=== PATIENT | female | born 1960 | race African-American/Black ===

== ENCOUNTER 2018-02-21 06:12 | Inpatient (IN) ==
[2018-02-21] MEDS ORDERED: Metoprolol Tartrate 25 MG Tablet PO ONE (06:38)
[2018-02-21] MEDS ORDERED: Chlorhexidine Gluconate 2% 1 Pack (2 Cloths) TOPICAL ONE (06:38)
[2018-02-21] MEDS ORDERED: ceFAZolin 2 GM Premix Inj 2 GM/50 ML PIGGYBACK IV.SIG SCH (07:00)
[2018-02-21] MEDS ORDERED: Sodium Chlor 0.9% Inj 500 ML IV.SIG SCH (07:00)
[2018-02-21] MEDS: Dextrose 5%/NaCl 0.9% Inj 1,000 ML IV.CONT SCH ×3 (07:17→21:57)
[2018-02-21] MEDS ORDERED: Lidocaine PF 1% Inj 5 ML Syringe OTHER ONE (08:48)
[2018-02-21] MEDS ORDERED: Normosol-R pH 7.4 Inj 3,000 ML IV.CONT ONE (08:48)
[2018-02-21] MEDS ORDERED: Phenylephrine/NS 1000 MCG/10ML Syringe IV.PUSH ONE (08:48)
--- NOTE | 2018-02-21 09:49 | P.OP ---
- Preoperative Diagnosis (1) Diverticulitis (2) Colovesical fistula - Postoperative Diagnosis (1) Colovesical fistula (2) Diverticulitis Date of procedure: 02/21/18 Procedure: Cystoscopy of bilateral ureteral catheter insertion Anesthesia: MALINI Surgeon: Brett Adhikari DO Operation and Findings: 57-year-old female with history of diverticulitis and colovesical fistula. Patient elected to undergo repair by Dr. Velazquez. Request were made for bilateral ureteral catheter insertion. Patient was brought to the operating room placed in the dorsolithotomy position. She was prepped and draped in usual sterile fashion, received preprocedure antibiotics, and received general endotracheal tube anesthesia. 2 Korean cystoscope was inserted the bladder lundberg cystoscopy was unremarkable. The left ureteral orifice was identified a 5 Korean Jiang catheter was inserted into the left ureteral orifice. This was repeated on the right side without difficulty. The Jiang was inserted and the catheters were attached to the Jiang. She tolerated the procedure well.
[2018-02-21] MEDS ORDERED: fentaNYL Citrate Inj 100 MCG/2 ML Ampul ONE ×3 (13:48→15:45)
[2018-02-21] MEDS ORDERED: ceFAZolin 2 GM Premix Inj 2 GM/50 ML PIGGYBACK IV.SIG ONE (14:02)
[2018-02-21] MEDS ORDERED: Naloxone Inj 0.4 MG/ML Vial IV.PUSH PRN (14:44)
[2018-02-21] MEDS ORDERED: Dextrose 5%/NaCl 0.9% Inj 1,000 ML IV.CONT SCH (14:45)
[2018-02-21] MEDS ORDERED: Potassium Chlor 20 mEq Premix 20 MEQ/100 ML PIGGYBACK IV.SIG PRN ×2 (14:45→16:00)
[2018-02-21] MEDS ORDERED: Sugammadex Inj 200 MG/2 ML Vial IV.PUSH ONE (14:54)
[2018-02-21] MEDS: Morphine Inj 30 MG/30 ML PCA.VIAL PCA PRN (15:58)
[2018-02-21 16:00] LABS: Baso % (Auto) 0.1 % (0.0-2.0); Eos # (Auto) 0.1 th/mm3 (0.0-0.4); Eos % (Auto) 0.4 % (0.0-4.0); Hematocrit 41.7 % (35.0-46.0); Hemoglobin 13.5 gm/dL (11.6-15.3); Lymph # (Auto) 0.8 th/mm3 (1.0-4.8); Lymph % (Auto) 6.1 % (9.0-44.0); Mean Corpuscular HGB Conc 32.4 % (32.0-36.0); Mean Corpuscular Volume 83.5 fL (80.0-100.0); Mean Platelet Volume 7.7 fL (7.0-11.0); Mono # (Auto) 0.7 th/mm3 (0.0-0.9); Mono % (Auto) 5.2 % (0.0-8.0); Neut # (Auto) 11.5 th/mm3 (1.8-7.7); Neut % (Auto) 88.2 % (16.0-70.0); Platelet Count 277 th/mm3 (150-450); Red Blood Count 4.99 mil/mm3 (4.00-5.30); Red Cell Distribution Width 14.8 % (11.6-17.2)
[2018-02-21] MEDS ORDERED: *morphine SULFATE 4 MG/ML PERIprocedure ONLY ONE (16:00)
[2018-02-21] MEDS: Ketorolac Inj 30 MG/ML (IVP) Vial IV.PUSH SCH ×2 (16:06→21:00)
[2018-02-21] MEDS ORDERED: ceFAZolin 1 GM Premix Inj 1 GM/50 ML IV.SIG SCH (18:00)
[2018-02-21 20:03] LABS: Calcium 7.4 mg/dL (8.5-10.1); Carbon Dioxide 27.6 meq/L (21.0-32.0); Potassium 3.5 meq/L (3.5-5.1)
[2018-02-21 20:28] LABS: Calcium-Albumin Corrected 7.5 mg/dL (8.5-10.1); Total Protein 6.9 g/dL (6.4-8.2)
[2018-02-21] MEDS: ceFAZolin 1 GM Premix Inj 1 GM/50 ML IV.SIG SCH (20:49)
[2018-02-21] MEDS: Famotidine PF Inj 20 MG/2 ML Vial IV.PUSH SCH (20:49)
[2018-02-22] MEDS: ceFAZolin 1 GM Premix Inj 1 GM/50 ML IV.SIG SCH ×2 (03:40→11:33)
[2018-02-22] MEDS: Ketorolac Inj 30 MG/ML (IVP) Vial IV.PUSH SCH ×4 (03:40→22:34)
[2018-02-22] MEDS: Dextrose 5%/NaCl 0.9% Inj 1,000 ML IV.CONT SCH ×2 (03:42→06:18)
[2018-02-22 04:42] LABS: Baso % (Auto) 0.1 % (0.0-2.0); Hematocrit 35.2 % (35.0-46.0); Hemoglobin 11.4 gm/dL (11.6-15.3); Lymph # (Auto) 0.8 th/mm3 (1.0-4.8); Lymph % (Auto) 6.3 % (9.0-44.0); Mean Corpuscular HGB Conc 32.4 % (32.0-36.0); Mean Corpuscular Hemoglobin 26.8 pg (27.0-34.0); Mean Corpuscular Volume 82.7 fL (80.0-100.0); Mean Platelet Volume 7.7 fL (7.0-11.0); Mono # (Auto) 0.9 th/mm3 (0.0-0.9); Mono % (Auto) 7.3 % (0.0-8.0); Neut # (Auto) 10.5 th/mm3 (1.8-7.7); Neut % (Auto) 86.3 % (16.0-70.0); Platelet Count 295 th/mm3 (150-450); Red Blood Count 4.26 mil/mm3 (4.00-5.30); Red Cell Distribution Width 14.1 % (11.6-17.2); White Blood Count 12.1 th/mm3 (4.0-11.0)
[2018-02-22 05:07] LABS: Calcium 7.4 mg/dL (8.5-10.1); Carbon Dioxide 27.4 meq/L (21.0-32.0); Potassium 3.4 meq/L (3.5-5.1)
[2018-02-22 05:23] LABS: Calcium-Albumin Corrected 7.8 mg/dL (8.5-10.1); Total Protein 6.3 g/dL (6.4-8.2)
[2018-02-22] MEDS: Famotidine PF Inj 20 MG/2 ML Vial IV.PUSH SCH ×2 (09:10→20:36)
[2018-02-22] MEDS: Heparin - SQ 10,000 UNITS/ML Vial SQ SCH ×2 (09:10→20:36)
[2018-02-23] MEDS: Ketorolac Inj 30 MG/ML (IVP) Vial IV.PUSH SCH ×5 (04:03→21:29)
[2018-02-23] MEDS: Morphine Inj 30 MG/30 ML PCA.VIAL PCA PRN ×2 (05:27→13:51)
[2018-02-23 08:18] LABS: Baso % (Auto) 0.2 % (0.0-2.0); Eos % (Auto) 0.1 % (0.0-4.0); Hematocrit 30.6 % (35.0-46.0); Hemoglobin 9.9 gm/dL (11.6-15.3); Lymph # (Auto) 0.9 th/mm3 (1.0-4.8); Lymph % (Auto) 9.9 % (9.0-44.0); Mean Corpuscular HGB Conc 32.2 % (32.0-36.0); Mean Corpuscular Hemoglobin 27.1 pg (27.0-34.0); Mean Corpuscular Volume 84.3 fL (80.0-100.0); Mono # (Auto) 0.7 th/mm3 (0.0-0.9); Mono % (Auto) 7.6 % (0.0-8.0); Neut # (Auto) 7.3 th/mm3 (1.8-7.7); Neut % (Auto) 82.2 % (16.0-70.0); Platelet Count 252 th/mm3 (150-450); Red Blood Count 3.63 mil/mm3 (4.00-5.30); Red Cell Distribution Width 14.2 % (11.6-17.2); White Blood Count 8.9 th/mm3 (4.0-11.0)
[2018-02-23 08:35] LABS: Calcium 7.8 mg/dL (8.5-10.1); Carbon Dioxide 27.7 meq/L (21.0-32.0); Potassium 3.8 meq/L (3.5-5.1)
[2018-02-23] MEDS: Heparin - SQ 10,000 UNITS/ML Vial SQ SCH ×2 (08:35→20:06)
[2018-02-23] MEDS: Famotidine PF Inj 20 MG/2 ML Vial IV.PUSH SCH ×2 (08:35→20:06)
[2018-02-23 12:06] LABS: Hematocrit 30.4 % (35.0-46.0); Hemoglobin 9.9 gm/dL (11.6-15.3); Mean Corpuscular HGB Conc 32.7 % (32.0-36.0); Mean Corpuscular Hemoglobin 27.7 pg (27.0-34.0); Mean Corpuscular Volume 84.8 fL (80.0-100.0); Platelet Count 251 th/mm3 (150-450); Red Blood Count 3.59 mil/mm3 (4.00-5.30); Red Cell Distribution Width 14.7 % (11.6-17.2); White Blood Count 10.3 th/mm3 (4.0-11.0)
[2018-02-23 12:17] LABS: Carbon Dioxide 27.1 meq/L (21.0-32.0)
[2018-02-24] MEDS: Ketorolac Inj 30 MG/ML (IVP) Vial IV.PUSH SCH ×4 (03:21→21:08)
[2018-02-24] MEDS: Morphine Inj 30 MG/30 ML PCA.VIAL PCA PRN (06:13)
[2018-02-24] MEDS: Heparin - SQ 10,000 UNITS/ML Vial SQ SCH ×2 (10:00→21:12)
[2018-02-24] MEDS: Famotidine PF Inj 20 MG/2 ML Vial IV.PUSH SCH ×2 (10:00→21:11)
--- NOTE | 2018-02-24 15:29 | P.PNCS ---
Subjective Colorectal Surgery Post Op Day #: 3 Interval history: s/p robotic LAR, resection/reanastomosis transverse colostomy Objective Result Diagrams: 02/23/18 11:38 02/23/18 11:38 Objective Remarks: Abdomen soft, moderate distension, nontender Wounds clean Assessment and Plan - Assessment (1) Diverticulitis Code(s): K57.92 - Diverticulitis of intestine, part unspecified, without perforation or abscess without bleeding Status: Acute (2) Colovesical fistula Code(s): N32.1 - Vesicointestinal fistula Status: Acute - Plan Advance diet Add Reglan Mobilize Stop [employer] Hopefully home tomorrow
[2018-02-24] MEDS ORDERED: Bisacodyl 10 MG Supp RECTAL ONE (15:30)
[2018-02-25] MEDS: Ketorolac Inj 30 MG/ML (IVP) Vial IV.PUSH SCH ×2 (04:56→09:42)
--- NOTE | 2018-02-25 08:33 | P.PNCS ---
Subjective Colorectal Surgery Post Op Day #: 4 Interval history: s/p robotic LAR, resection/reanastomosis transverse colostomy Objective Result Diagrams: 02/23/18 11:38 02/23/18 11:38 Objective Remarks: Abdomen soft, mild distension, mildly tender Wounds clean Assessment and Plan - Assessment (1) Diverticulitis Code(s): K57.92 - Diverticulitis of intestine, part unspecified, without perforation or abscess without bleeding Status: Acute (2) Colovesical fistula Code(s): N32.1 - Vesicointestinal fistula Status: Acute - Plan Doing well Home today
--- NOTE | 2018-02-25 09:25 | MD ---
cc: Elly Velazquez MD DATE OF DISCHARGE: 02/25/2018 ADMISSION DIAGNOSES: Diverticulitis, hypertension. DISCHARGE DIAGNOSES: Diverticulitis, hypertension. PROCEDURES: 1. Cystoscopy with placement of bilateral ureteral catheters. 2. Resection with reanastomosis of transverse colostomy. 3. Extensive lysis of adhesions. 4. Low anterior resection. HOSPITAL COURSE: The patient is a 57-year-old female who underwent a diverting transverse colostomy sometime about 8 months ago, I believe, for a perforated diverticulitis. She was admitted to the hospital on 02/21/2018, after an outpatient bowel prep. She went to the operating room where she underwent the above-named procedures. Postoperatively, she did well with slightly delayed bowel function, but she did begin passing stool on postoperative day #3 and was discharged on postoperative day #3 with instructions to followup with myself in the office. Final pathology is not available at the time of discharge. MD CRYSTAL Goss/nereyda , 08:36 AM , 08:42 AM
[2018-02-25] MEDS: Famotidine PF Inj 20 MG/2 ML Vial IV.PUSH SCH (09:43)
[2018-02-25] MEDS: Heparin - SQ 10,000 UNITS/ML Vial SQ SCH (09:43)
[2018-02-25 09:51] VITALS: BP 147/67; PULSE 94; RESP 16; TEMP 97.8; O2SAT 994
--- NOTE | 2018-02-25 15:00 | MP ---
cc: Elly Velazquez MD DATE OF OPERATION: 02/21/2018 PREOPERATIVE DIAGNOSIS: History of perforated diverticulitis. POSTOPERATIVE DIAGNOSIS: History of perforated diverticulitis. PROCEDURE PERFORMED: 1. Robotic-assisted resection with reanastomosis of transverse colon colostomy. 2. Extensive lysis of adhesions. 3. Low anterior resection. 4. Takedown of splenic flexure. SURGEON: Elly Velazquez MD. SOCK KNITTER: Sudhir. ANESTHESIA: General per ET tube. ESTIMATED BLOOD LOSS: 100 mL. OPERATIVE INDICATIONS: This is a 57-year-old female who approximately 8 months prior to this admission had a ruptured diverticulitis. The surgeon that saw her did a washout with a diverting loop transverse colostomy. She was brought to the operating room, placed in the supine position. After induction of general anesthesia, the patient was placed in Deep stirrups and all bony prominences were carefully padded. The skin of the anterior abdominal wall as well as the perineal area were then prepped and draped in the usual sterile fashion. Dr. Adhikari then came in and performed cystoscopy with placement of bilateral ureteral catheters, please see his operative note for details. Because of her stoma, the assist port was placed first just under the right costal margin. This was a #5 assist port, although we did later change it out to an 8 de Favian port. CO2 insufflation was then undertaken. The patient was noted immediately to have some adhesions to the anterior abdominal wall. These were mostly from the omentum, but some bowel. These were slowly and painstakingly dissected free using electrocautery. Eventually, we had mobility of everything with the exception, of course, of the stoma. The right lower quadrant 10/12 port was placed just inside the right anterior superior iliac spine. After discussion at this point, I felt that the most prudent thing to do would be to place the ports such that we could dock over the shoulder to take down the transverse colon for the reanastomosis and then the splenic flexure as we would definitely need that because of the transverse surgery and then redock over the hip. The remainder of the ports were placed as followed. The camera port was placed just to the right of the umbilicus. The #3 port was placed on the line of the umbilicus in the left anterior axillary line. The #2 port was placed 2 fingerbreadths above the umbilical line in the left midclavicular line. The patient was rotated with head slightly up and to the right. The robot was docked over the left shoulder. The omentum was then gently pulled away from the transverse colon and carefully dissected free from the transverse colon along its length, dissecting up and around the splenic flexure using electrocautery. Eventually, we had mobility of the colon distal to the colostomy up and around the splenic flexure and down the proximal descending colon. At this point, the proximal transverse colon was also dissected free from the undersurface of the omentum freeing this up for our eventual reanastomosis. At this point, after evaluation, I felt that we had done all of the upper part of the surgery that we needed to do and we elected to proceed with an open closure of the colostomy via the incision. The incision was incised sharply circumferentially around the stoma and the bowel was pulled up and out. A site was chosen for division of the bowel just proximal and distal to the stoma and a ABHISHEK stapler was placed across the bowel both proximally and distally. This was closed and fired. The intervening mesentery was seriously divided and ligated using 0 Vicryl ties and the specimen was sent for pathology. The antimesenteric corners of the staple line were then removed, one limb of the gastrointestinal staple was placed on each limb of the bowel along the antimesenteric border. This was then closed, held for 30 seconds, fired, and removed, thus creating an enteroenterotomy. The resulting enterotomy was closed transversely with a TX 60 stapling device. Simple stay suture was placed at the distal end of the anastomosis and the anastomosis was palpated and found to be widely patent. This was then reduced back into the peritoneal cavity. The fascia at the colostomy site was then closed in a running fashion using #1 PDS. The wound was irrigated with warm normal saline and the skin was closed in a running subcuticular fashion using 3-0 Vicryl. When we entered, there was quite a bit of bowel that was stuck up to the mesh from her previous umbilical hernia repair. This was also dissected free, mostly. This appeared to be cecum and terminal ileum. The patient was then turned and deroped and hydroplaned with head down and slightly to the right. The small bowel and the colon were then brought up and out of the pelvis. The robot was docked over the left hip. The sigmoid colon was retracted down to the left and the peritoneum on the right was scored. Dissection continued in this plane underneath the vessels into the left ureter was clearly identified and swept away from the specimen. A window was then made around the vessels using electrocautery. A white load of the [place] [employer] stapler was then placed across the vessels closed, fired, and removed, thus dividing the vessels. Dissection then continued posteriorly down to the level of the distal rectum and up and around the right side. There was quite a bit of adhesions in the pelvis from her previous perforation. The sigmoid colon was then retracted to the right and the lateral peritoneal attachments of the sigmoid colon were dissected free, as were the adhesions in the pelvis. Eventually, we were able to free up the sigmoid colon down to the level of the mid rectum. It was necessary to go below the peritoneal reflection. Site was then chosen for division of the colon on the mid rectum. The mesentery at this level was divided using the Harmonic scalpel and a blue load of the [employer] [employer] stapler was placed across the bowel at this level. This was closed, fired, and removed. The 29 EEA stapler was advanced through the anus and up to the rectal stump without difficulty. Small amount of fibrofatty tissue was cleared of the rectum circumferentially. At this point, we evaluated and having already taken down the splenic flexure, I felt that we had adequate length for our reanastomosis and the robot was undocked. The previously closed colostomy incision was then opened and wound protector was placed. The proximal staple in the bowel was brought up through the wound protector and a site was chosen for proximal division of the bowel where the bowel was soft, pliable, and appeared healthy. The mesentery at this level was serially divided and ligated using 0 Vicryl ties and a pursestring stapling device was placed across the bowel at this level. The distal bowel was amputated and taken to a back table where it was later opened and noted to have evidence only of diverticulosis. The anvil from the 29 EEA stapler was placed into the cut into the bowel and the previously placed pursestring suture was then secured. The bowel with the anvil in place was then reduced back into the peritoneal cavity. The fascia at the colostomy site was then closed again in a running fashion using #1 PDS and the skin was closed in a running subcuticular fashion using 3-0 Vicryl. CO2 insufflation was then resumed and the laparoscope was brought onto the field. The 29 EEA stapler was again advanced through the anus up to the rectal stump. The spike was advanced just posterior to the staple and the anvil was into the spike being careful that the bowel was not twisted. The stapler was then closed, fired, and removed, thus creating an enteroenterotomy. It appeared pink and healthy circumferentially and both anastomotic rings were complete. A small amount of warm normal saline was placed into the pelvis and air was insufflated into the rectum as digital pressure was held proximally. Gentle tension was noted on the anastomosis with no sign of any leakage noted. The air was desufflated to the extent possible and the saline was suctioned out. A small amount of powdered Surgicel was dusted into the pelvis to take care of any oozing and the bowel lay in a nice orientation with no tension. The fascia at the 10/12 trocar sites was then closed using the crossbow device and 0 Vicryl suture. These were placed and held, but not removed until the air was desufflated to the extent possible. Air was desufflated to the extent possible. The fascial sutures were secured. The skin at all the trocar sites was closed with interrupted subcuticular fashion with 3-0 Vicryl. Steri-Strips and sterile dressings were applied. The right ureteral stent was removed. All sponge, needle, and instrument counts were correct and the patient was returned to the postanesthesia care unit in stable condition. MD CRYSTAL Goss/dave , 02:17 PM , 02:33 PM
== END 2018-02-25 11:04 | disposition home or self-care (01) ==
LOC: HSDI 06:12 → HCPC 16:25 → N07 02-22 18:45
PROVIDERS: ADMIT Colon & Rectal Surgery; ATTEND Colon & Rectal Surgery